=== PATIENT | female | born 1995 | race African-American/Black ===

== ENCOUNTER 2021-09-11 16:48 | Emergency (ER) | payer BC, OTHER ==
[~2021-09-11] VITALS: Ht 162.6 cm; Wt 59.9 kg
[2021-09-11 16:58] VITALS: BP 138/73
[2021-09-11 18:22] LABS: HEMATOCRIT 25.7 % (37.0-47.0); HEMOGLOBIN 7.4 gm/dL (12.0-15.0); MCH 17.1 pg (26.0-34.0); MCHC 28.8 g/dL (28.0-37.0); MCV 59.3 fL (80.0-100.0); PLATELET COUNT 398 thou/uL (150-400); RBC 4.33 mil/uL (4.20-5.00); WBC 8.5 thou/uL (4.0-11.0)
[2021-09-11 18:37] LABS: CALCIUM 8.8 mg/dL (8.5-10.1); CREATININE 0.6 mg/dL (0.6-1.0)
[2021-09-11 18:44] LABS: ALBUMIN 3.9 g/dL (3.4-5.0); TOTAL BILIRUBIN 0.2 mg/dL (0.2-1.0); TOTAL PROTEIN 7.2 g/dL (6.4-8.2)
[2021-09-11 18:57] LABS: ABSOLUTE NEUTROPHILS 5.4 thou/uL (1.4-8.2); HYPOCHROMASIA 3+
[2021-09-11 18:58] LABS: MICROCYTES 2+
[2021-09-11 18:59] LABS: ANISOCYTOSIS 2+
[2021-09-11 20:49] LABS: URINE BILIRUBIN NEGATIVE (Negative); URINE BLOOD 3+ (Negative); URINE CLARITY CLEAR; URINE COLOR YELLOW; URINE GLUCOSE-RANDOM* NEGATIVE (Negative); URINE KETONES NEGATIVE (Negative); URINE LEUKOCYTES-REFLEX NEGATIVE (Negative); URINE NITRITE-REFLEX NEGATIVE (Negative); URINE PROTEIN (DIPSTICK) NEGATIVE (Negative); URINE UROBILINOGEN 0.2 E.U./dl (0.2-1.0)
[2021-09-11 20:57] LABS: SQUAMOUS >10 Many /LPF (0-3)
[2021-09-11 20:59] LABS: CASTS None Seen /LPF (None Seen); CRYSTALS None Seen /LPF (None Seen); URINE RBC 3-10 Few /HPF (NONE SEEN); URINE WBC-REFLEX 0-5 Rare /HPF (0-5)
[2021-09-12] MEDS ORDERED: IRON325 M1 PO (11:20)
== END 2021-09-11 20:20 | disposition home or self-care (01) ==
LOC: ER 16:48
PROVIDERS: Physician Assistant
DX: O46.92 Antepartum hemorrhage, unspecified, second trimester (principal); Z3A.14 14 weeks gestation of pregnancy

== ENCOUNTER 2021-09-12 10:53 | Emergency (ER) | payer BC, OTHER ==
[~2021-09-12] VITALS: Ht 162.6 cm; Wt 59.9 kg
[2021-09-12] MEDS ORDERED: IRON325 M1 PO (11:20)
[2021-09-12 11:22] LABS: HEMATOCRIT 28.7 % (37.0-47.0); HEMOGLOBIN 8.3 gm/dL (12.0-15.0); MCV 58.6 fL (80.0-100.0); RBC 4.91 mil/uL (4.20-5.00); RDW 18.4 % (10.5-14.5); WBC 7.4 thou/uL (4.0-11.0)
[2021-09-12 12:14] VITALS: BP 116/92
== END 2021-09-12 12:18 | disposition home or self-care (01) ==
LOC: ER 10:53
PROVIDERS: Nurse Practitioner Family
DX: O20.0 Threatened abortion (principal); O99.511 Diseases of the respiratory system complicating pregnancy, first trimester; O99.019 Anemia complicating pregnancy, unspecified trimester; Z91.018 Allergy to other foods